=== PATIENT | male | born 1985 | race African-American/Black ===

== ENCOUNTER → 2017-04-09 | Outpatient (CLI) | payer OTHER ==
--- NOTE | 2017-04-09 11:43 | MM ---
Reason for exam: clinical finding. History: Family history of breast cancer in paternal grandmother at age 50. Physical Findings: Nurse Summary: 1cm nodule in the right breast at 12 o'clock (nurse silviano). [facility] Diagnostic Mammo w CAD KENNETH Bilateral CC and MLO view(s) were taken. ML view(s) were taken of the right breast. There are scattered fibroglandular densities. There is a flame shaped subareolar density on the right. Minimal similar density on the left. Findings compatible with asymmetric gynecomastia. These results were verbally communicated with the patient and result sheet given to the patient on 04/09/17. ASSESSMENT: Benign, BI-RAD 2 RECOMMENDATION: Clinical management of both breasts. Manage on a clinical basis with regard for possible causes on gynecomastia.
== END | disposition home or self-care (01) ==
LOC: RADMAMWWP 10:26
PROVIDERS: ATTEND Family Medicine
DX: N63.20 Unspecified lump in the left breast, unspecified quadrant (principal); N64.4 Mastodynia
CPT/HCPCS: 77066